=== PATIENT | female | born 1955 | race Caucasian/White ===

== ENCOUNTER 2019-07-08 17:54 | Emergency (ER) | payer MEDICARE ==
[~2019-07-08] VITALS: Ht 152.4 cm; Wt 45.4 kg
[2019-07-08] MEDS ORDERED: Percocet 7.5-31 EACH PO (19:36)
== END 2019-07-08 19:45 | disposition home or self-care (01) ==
LOC: ER 17:54
DX: M54.16 Radiculopathy, lumbar region (principal); M25.551 Pain in right hip
CPT/HCPCS: 99283